=== PATIENT | female | born 1950 | race African-American/Black ===

== ENCOUNTER 2019-02-06 06:36 | Day surgery (SDC) | payer SELFPAY ==
[2019-02-05 16:12] VITALS: BMI 47.9
[2019-02-06] MEDS ORDERED: fentaNYL CITRATE 250 MCG/5 ML VIAL ONE (07:14)
[2019-02-06] MEDS ORDERED: SUCCINYLCHOLINE CHLORIDE 200 MG/10 ML SYRINGE ONE (07:15)
[2019-02-06] MEDS ORDERED: ROCURONIUM BROMIDE 50 MG/5 ML SYRINGE ONE ×2 (07:15→08:50)
[2019-02-06] MEDS ORDERED: MIDAZOLAM HCL 2 MG/2 ML SINGLE DOSE VIAL ONE (07:15)
[2019-02-06] MEDS ORDERED: PROPOFOL 20 ML ONE ×4 (07:15→12:15)
[2019-02-06] MEDS ORDERED: DEXAMETHASONE SOD PHOSPHATE 4 MG/1 ML VIAL ONE (07:20)
[2019-02-06] MEDS ORDERED: LIDOCAINE HCL/PF 2% SDV 5ML VIAL ONE (07:22)
[2019-02-06] MEDS ORDERED: BUPIVACAINE HCL/PF 0.5% (5 MG/ML) 30 ML VIAL IJ ONE (07:28)
[2019-02-06] MEDS ORDERED: EPINEPHrine/PF 1 MG/1 ML (1:1,000) AMPULE ONE ×2 (07:28→07:39)
[2019-02-06] MEDS ORDERED: LIDOCAINE HCL 1%, 10 MG/ML (20ML VIAL) ONE ×3 (07:32→07:39)
[2019-02-06] MEDS ORDERED: ceFAZolin SODIUM 1 GM VIAL ONE (08:25)
[2019-02-06] MEDS ORDERED: ceFAZolin SODIUM 1 GM VIAL IVPB ONE (08:27)
[2019-02-06] MEDS ORDERED: GLYCOPYRROLATE 0.2 MG/1 ML VIAL ONE (11:02)
[2019-02-06] MEDS ORDERED: NEOSTIGMINE METHYLSULFATE 0.5 MG/ML - 10 ML MDV ONE (11:02)
[2019-02-06] MEDS ORDERED: BENZOIN TINCTURE SWABSTICK TP ONE (12:06)
[2019-02-06] MEDS ORDERED: MORPHINE SULFATE 2 MG/ML VIAL IVPUSH PRN (13:28)
[2019-02-06] MEDS ORDERED: ONDANSETRON 8 MG TABLET (FP) PO PRN (13:37)
[2019-02-06] MEDS ORDERED: ACETAMINOPHEN 500 MG TABLET (FP) PO PRN (13:46)
[2019-02-06] MEDS ORDERED: oxyCODONE HCL 5 MG TABLET PO PRN ×2 (13:47→13:48)
[2019-02-06] MEDS ORDERED: IBUPROFEN 400 MG TABLET (FP) PO PRN (13:47)
[2019-02-06] MEDS: LACTATED RINGERS SOLUTION 1,000 ML IV SCH (16:06)
[2019-02-06] MEDS: ACETAMINOPHEN WITH CODEINE 300MG/30MG TABLET PO PRN (22:14)
[2019-02-07] MEDS: LACTATED RINGERS SOLUTION 1,000 ML IV SCH (00:17)
[2019-02-07] MEDS: ACETAMINOPHEN WITH CODEINE 300MG/30MG TABLET PO PRN (05:27)
--- NOTE | 2019-02-07 08:30 | PN ---
Progress Note (short form) - Note Progress Note: Anesthesia Post op Pt seen and examined S:Alert and awake comfortable O: Vital Signs Temperature 98.5 F 02/07/19 05:00 Pulse Rate 70 02/07/19 05:00 Respiratory Rate 20 02/07/19 05:00 Blood Pressure 125/79 02/07/19 05:00 O2 Sat by Pulse Oximetry (%) 98 02/06/19 16:56 A/P: s/p abdominoplasty, liposuction Doing well post op Continue current care Usman Pereyra M.D.
[2019-02-07] MEDS ORDERED: PANTOPRAZOLE 40 MG TABLET (FP) PO SCH (10:00)
[2019-02-07 11:16] VITALS: BP 143/74; PULSE 62; TEMP 98.1
== END 2019-02-07 11:21 | disposition home or self-care (01) ==
LOC: JASUSAT 06:36 → JASU-SURG 06:36 → J8W 15:30 → JASUSAT 02-07 11:21
PROVIDERS: ATTEND Plastic Surgery
PROC: 0J080ZZ Alteration of Abdomen Subcutaneous Tissue and Fascia, Open Approach (ICD-10-PCS; principal; 2019-02-06 08:27)
PROC: 0J083ZZ Alteration of Abdomen Subcutaneous Tissue and Fascia, Percutaneous Approach (ICD-10-PCS; 2019-02-06 08:27)
DX: Z41.1 Encounter for cosmetic surgery (principal)
CPT/HCPCS: 74018-TC-FY; 76000-TC-FY; 94760